=== PATIENT | female | born 1995 | race Caucasian/White ===

== ENCOUNTER 2018-03-24 14:56 | Outpatient (REF) | payer MEDICAID, SELFPAY ==
[2018-03-24 18:52] LABS: Anion Gap 6.6 mmol/L (3-11); BUN 12 mg/dL (7-18); CO2 27.4 mmol/L (21.0-32.0); CREATININE 0.71 mg/dL (0.55-1.02); Calcium 8.6 mg/dL (8.5-10.1); Chloride 104 mmol/L (98-107); Glucose 87 mg/dL (70-100); Potassium 4.3 mmol/L (3.5-5.1); Sodium 138 mmol/L (136-145); TSH 1.77 uIU/mL (0.358-3.74)
[2018-03-24 19:27] LABS: Cholesterol 178 mg/dL (50-200); HDL Cholesterol 71 mg/dL (40-60); LDL CHOLESTEROL 92 mg/dL (<100); Triglyceride 85 mg/dL (30-150)
== END 2018-03-24 14:57 ==
LOC: NCHCN 14:56
PROVIDERS: PCP Nurse Practitioner Family; Visit Provider Nurse Practitioner Family
DX: Z13.29 Encounter for screening for other suspected endocrine disorder (principal); Z13.228 Encounter for screening for other metabolic disorders; Z13.220 Encounter for screening for lipoid disorders; Z00.00 Encounter for general adult medical examination without abnormal findings
CPT/HCPCS: 80048; 80061; 83721; 84443

== ENCOUNTER 2020-04-13 16:58 | Outpatient (REF) | payer MEDICAID, SELFPAY ==
[2020-04-16 19:29] LABS: SARS-CoV-2 RNA Undetected (Undetected); SARS-CoV-2 Specimen Source Nasopharynx
== END 2020-04-13 17:18 ==
LOC: NCHCN 16:58
PROVIDERS: PCP Nurse Practitioner Family; Visit Provider Nurse Practitioner Family
DX: Z20.828 Contact with and (suspected) exposure to other viral communicable diseases (principal)
CPT/HCPCS: U0003

== ENCOUNTER 2021-04-06 09:52 | Outpatient (REF) | payer MEDICAID, SELFPAY ==
[2021-04-08 16:21] LABS: COVID-19 RT-PCR UVMMC Result Negative (Negative)
== END 2021-04-06 09:53 | disposition home or self-care (01) ==
LOC: NCHCN 09:52
PROVIDERS: PCP Nurse Practitioner Family; Visit Provider Nurse Practitioner Family
DX: Z20.822 Contact with and (suspected) exposure to COVID-19 (principal)
CPT/HCPCS: U0003

== ENCOUNTER 2024-08-31 13:13 | Emergency (ER) | payer MEDICAID, SELFPAY ==
[2024-08-31 13:26] VITALS: BP 148/62; PULSE 88; RESP 16; TEMP 37; O2SAT 98
[2024-08-31] MEDS: Benzocaine 20% Gel 30 GM JAR MM (13:53)
--- NOTE | 2024-08-31 15:42 | W.ED.GENAD ---
Discharge Plan Disposition Patient Disposition: Home Condition: Stable Discharge Details Clinical Impression: Abscess, dental Primary Care Provider: Asmita Renee ED Provider: Nadia Wolfe Home Meds and New Rx's Prescriptions: Continued clindamycin HCl 150 mg capsule 450 mg PO TID Discharge Instructions Instructions: Tooth Abscess (DC), Abscess Incision and Drainage ED Additional Instructions: With warm salt water every hour if possible Continue on the antibiotics Take ibuprofen and Tylenol as needed for pain Enclosed a list of dentist, please follow-up for reassessment as soon as possible Please return earlier should you have difficulty swallowing, chest pain, shortness of breath, or should any new concerns arise Referrals: Asmita Renee [Primary Care Provider] - 1 day Discharge Data Discharge Date/Time-TO BE ENTERED AT DEPARTURE: 08/31/24 15:50 HPI General Date/Time Provider Initiated Documentation: 08/31/24 13:39. HPI Narrative: This 28 yo patient presents to the emergency department with swelling around her chin that is worsening. She was diagnosed with an abscess at [facility] yesterday and was advised to seek reevaluation if her condition deteriorated. She reports no difficulty swallowing or shortness of breath but expresses concern about the rapid progression of her symptoms. She also reports no possibility of , history of illicit drug use, or systemic symptoms such as fever or chills. She was appropriately started on clindamycin. Related Data Home Medications ?Medication ?Instructions ?Recorded ?Confirmed clindamycin HCl 150 mg capsule 450 mg PO TID 08/31/24 08/31/24 Allergies Allergy/AdvReac Type Severity Reaction Status Date / Time Penicillins Allergy Intermediate Unknown Verified 08/31/24 13:30 General Stated Complaint: DentalOral ANGELIKA: 3 Exam Narrative Exam Narrative: The patient presents to the emergency department with swelling around her chin that is worsening. She was diagnosed with an abscess at [facility] yesterday and was advised to seek reevaluation if her condition deteriorated. She reports no difficulty swallowing or shortness of breath but expresses concern about the rapid progression of her symptoms. She also reports no possibility of , history of illicit drug use, or systemic symptoms such as fever or chills. She was appropriately started on clindamycin. Course Vital Signs Vital signs: Vital Signs Temperature 37.0 C 08/31/24 13:26 Pulse 88 08/31/24 13:26 Respiratory Rate 16 08/31/24 13:26 Blood Pressure 148/62 H 08/31/24 13:26 Pulse Oximetry 98 08/31/24 13:26 Temperature 37.0 C 08/31/24 13:26 Pulse 88 08/31/24 13:26 Respiratory Rate 16 08/31/24 13:26 Blood Pressure 148/62 H 08/31/24 13:26 Pulse Oximetry 98 08/31/24 13:26 Pain Level 5 08/31/24 13:26 Medical Decision Making Initial Assessment: Female presents with swelling around her chin, diagnosed as an abscess, and was started on clindamycin. No difficulty swallowing or shortness of breath. Mild swelling and induration noted on the jawline. ED Course: - Provided Tylenol, ibuprofen, and a Lidoderm patch. - Hurricane gel applied to fluctuance adjacent to tooth #25. - Abscess drained with suction, approximately 10 cc of purulent drainage appreciated. - Marked improvement of symptoms and swelling post-procedure. - Continued on clindamycin 450 mg three times daily. - Given a list of dental resources. - Stable for discharge home. - Continued salt water gargles and antibiotics. - Return precautions reviewed and patient voiced understanding. - Tolerated procedure without incident. Final Assessment: Patient presented with a chin abscess and received appropriate interventions including drainage and continuation of antibiotics. Marked improvement noted and patient stable for discharge. Clinical Impression: - Chin abscess Disposition: - Discharge: Patient stable for discharge home. - Follow-Up: List of dental resources provided. Patient Education: Return precautions reviewed and patient voiced understanding. MDM Components Evaluation: - Number of Differential Diagnoses or Management Options: Chin abscess - - Risk of Complication and Morbidity or Mortality: Low risk given improvement post-procedure and stable condition. Quality:[facility] Health Related Social Needs: No Data to Display [facility] All Active Problems (Updated 08/31/24 @ 15:31 by MARILYN Paige) Abscess, dental (Acute) Social History Smoking/Tobacco Use Status: Current every day Tobacco Type: cigarettes Years smoked: 16 Smoking risk assessment performed?: Yes Alcohol Intake: current Alcohol Intake frequency: a few times a month Drug use: Never Substance use type: marijuana Do you feel safe at home: Yes Do you feel safe in your relationship?: Yes
== END 2024-08-31 15:50 | disposition home or self-care (01) ==
PROVIDERS: Emergency Provider Physician Assistant; PCP Nurse Practitioner Family
DX: K04.7 Periapical abscess without sinus (principal); L02.01 Cutaneous abscess of face
CPT/HCPCS: 10060